=== PATIENT | female | born 1990 | race Caucasian/White ===

== ENCOUNTER 2020-05-29 06:30 | Emergency (ER) | payer OTHER ==
[2020-05-29] MEDS ORDERED: ATIVAN1 M1 PO (08:03)
== END 2020-05-29 08:25 | disposition home or self-care (01) ==
LOC: FER 06:30
DX: F41.0 Panic disorder [episodic paroxysmal anxiety] (principal); F32.9 Major depressive disorder, single episode, unspecified; F17.210 Nicotine dependence, cigarettes, uncomplicated; Z79.899 Other long term (current) drug therapy
CPT/HCPCS: 99283